=== PATIENT | female | born 1935 | race Caucasian/White ===

== ENCOUNTER 2018-12-26 11:28 | Emergency (ER) | payer MEDICARE, OTHER ==
[~2018-12-26] VITALS: Ht 160 cm; Wt 54.9 kg
[2018-12-26 11:33] VITALS: BP 183/80
== END 2018-12-26 14:29 | disposition home or self-care (01) ==
LOC: ER 11:28
DX: S61.012A Laceration without foreign body of left thumb without damage to nail, initial encounter (principal); S01.511A Laceration without foreign body of lip, initial encounter; M54.2 Cervicalgia; Z60.2 Problems related to living alone; Z88.8 Allergy status to other drugs, medicaments and biological substances; W18.39XA Other fall on same level, initial encounter; Y93.89 Activity, other specified; Y92.89 Other specified places as the place of occurrence of the external cause; Y99.8 Other external cause status
CPT/HCPCS: 70450; 72125; 99284

== ENCOUNTER 2020-07-09 06:37 | Day surgery (SDC) | payer MEDICARE, OTHER ==
[2020-07-01 16:19] LABS: BASOPHILS % (AUTO) 0.5 % (0-1); EOSINOPHILS # (AUTO) 0.1 X10'3 (0-0.9); EOSINOPHILS % (AUTO) 0.9 % (0-6); LYMPHOCYTES # (AUTO) 2.1 X10'3 (1.1-4.8); LYMPHOCYTES % (AUTO) 29.1 % (21-51); MEAN CORPUSCULAR HEMOGLOBIN 26.4 PG (27.0-31.0); MEAN CORPUSCULAR HGB CONC 33.3 g/dL (33.0-36.5); MEAN CORPUSCULAR VOLUME 79.3 FL (78-98); MONOCYTES # (AUTO) 0.5 X10'3 (0-0.9); MONOCYTES % (AUTO) 6.7 % (2-12); NEUTROPHILS # (AUTO) 4.6 X10'3 (1.8-7.7); NEUTROPHILS % (AUTO) 62.8 % (42-75); PRE OP HEMATOCRIT 37.6 % (35.0-45.0); PRE OP HEMOGLOBIN 12.5 g/dL (12.0-16.0); PRE OP PLATELET COUNT 295 X10'3 (140-440); RED BLOOD COUNT 4.74 X10'6 (4.20-5.60); RED CELL DISTRIBUTION WIDTH 13.8 % (11.5-14.5)
[2020-07-01 16:37] LABS: ALBUMIN 3.4 G/DL (3.4-5.0); ALBUMIN/GLOBULIN RATIO 0.9 (1.1-1.5); ALKALINE PHOSPHATASE 72 IU/L (46-116); BLOOD UREA NITROGEN 13 MG/DL (7-18); BUN/CREATININE RATIO 16.9 (6.6-38.0); CALCIUM 8.9 MG/DL (8.5-10.1); CHLORIDE 104 MMOL/L (99-107); CREATININE 0.77 MG/DL (0.40-0.90); PRE OP ANION GAP 9 (8-16); PRE OP AST 18 U/L (10-37); PRE OP BILIRUB, TOTAL 0.2 MG/DL (0.0-1.0); PRE OP GLUCOSE 133 MG/DL (70-104); PRE OP POTASSIUM 3.6 MMOL/L (3.4-5.1); PRE OP SODIUM 142 MMOL/L (135-145); TOTAL CARBON DIOXIDE 28.8 MMOL/L (24-32); TOTAL PROTEIN 7.1 G/DL (6.4-8.2); eGFR 72 ML/MIN
[2020-07-01 17:48] LABS: PRE OP ALT 24 U/L (30-65)
[~2020-07-09] VITALS: Ht 162.6 cm; Wt 55.8 kg
[2020-07-09] VITALS (7 sets, daily range): BP systolic 139–166; BP diastolic 63–83
[~2020-07-09 06:37] MED LIST: ESTR0.452 PO; cefazolin/dext.iso 2gm/100ml IV ONE; famotidine 20mg tablet PO ONE; ringers solution, lacted 1,000 ML IV SCH
[2020-07-09] MEDS ORDERED: BUPIVAcaine/PF 2.5 mg/ml (0.25%) 30ml vial ONE (06:43)
[2020-07-09] MEDS ORDERED: proCHLORperazine 10 MG/2 ml inj IV PRN (07:20)
[2020-07-09] MEDS ORDERED: meperidine/PF 25mg/ml syringe IV PRN ×3 (07:20)
[2020-07-09] MEDS ORDERED: ondansetron/PF 4mg/2ml inj IV PRN (07:20)
[2020-07-09] MEDS ORDERED: morphine 2 MG/ML inj. syringe IV PRN (07:20)
[2020-07-09] MEDS ORDERED: ringers solution, lacted 1,000 ML IV SCH (07:20)
[2020-07-09] MEDS ORDERED: morphine 4 MG/ML inj SYRINge IV PRN (07:20)
[2020-07-09] MEDS ORDERED: LIDOcaine 0.5% (5mg/ml) 50ml vial ONE (08:52)
[2020-07-09] MEDS ORDERED: fentaNYL/PF 50MCG/1 ML 2ML syringe ONE (08:53)
[2020-07-09] MEDS ORDERED: midazolam 1 mg/ML 2ml injection ONE (08:53)
--- NOTE | 2020-07-09 09:50 | NUR ---
Received from OR via BED , accompanied by Anesthesiologist and report given by Anesthesiologist. PATIENT WAKING UP, NO S/S OF PAIN, V/S WNL, SCD ON, 20G TO LUE, RIGHT THUMB DRESSING CDI W/ SLING. ICE AND ELEVATED RUE
[2020-07-09] MEDS ORDERED: HYDROcodone/acetaminophen 10/325mg tab PO ONE (10:30)
--- NOTE | 2020-07-09 10:30 | NUR ---
PATIENT A&OX4, DENIES PAIN, V/S WNL, SCD OFF, 20G TO LUE D/C, RIGHT WRIST DRESSING CDI W/ SLING. ICE AND ELEVATED RUE. I HAVE REVIEWED D/C INSTRUCTIONS WITH PATIENT And they have verbalized understanding. patient d/c home with all belongings and family gave transport home.
== END 2020-07-09 10:30 | disposition home or self-care (01) ==
LOC: PAS 06:37
PROVIDERS: ATTEND Orthopaedic Surgery Hand Surgery
DX: M18.11 Unilateral primary osteoarthritis of first carpometacarpal joint, right hand (principal); M19.041 Primary osteoarthritis, right hand; M19.042 Primary osteoarthritis, left hand; Z79.899 Other long term (current) drug therapy; Z98.890 Other specified postprocedural states; Z85.828 Personal history of other malignant neoplasm of skin; Z87.440 Personal history of urinary (tract) infections; Z90.710 Acquired absence of both cervix and uterus; Z90.721 Acquired absence of ovaries, unilateral; Z72.89 Other problems related to lifestyle
CPT/HCPCS: 25445; 36415; 80053; 82948; 85025; 93005; C1762; J2001; J2250; J3010; J3490; J7120; A4215; A4618; A7000